=== PATIENT | male | born 1955 | race Caucasian/White ===

== ENCOUNTER 2017-10-26 07:21 | Inpatient (IN) | payer BC ==
[2017-10-26] MEDS: SOD CHLORIDE 0.45% 1,000 ML IV (06:00)
[2017-10-26] MEDS: FAMOTIDINE 20 MG TAB PO (07:00)
[2017-10-26] MEDS: DIAZEPAM 5 MG TAB PO (07:00)
[2017-10-26] MEDS: DIPHENHYDRAMINE 50 MG CAP PO (07:00)
[2017-10-26 08:06] LABS: ADD MAN DIFF? NO
[2017-10-26 08:09] LABS: BASOPHIL # 0.1 10^3/ul (0.0-0.1); BASOPHILS % 0.6 % (0.0-2.0); EOSINOPHILS # 0.3 10^3/ul (0.0-0.5); EOSINOPHILS % 3.2 % (0.0-7.0); HEMOGLOBIN 14.8 g/dl (14.0-18.0); LYMPHOCYTES # 1.7 10^3/ul (0.8-2.9); LYMPHOCYTES % 20.5 % (15.0-51.0); MEAN CORPUSCULAR HEMOGLOBIN 29.9 pg (29.0-33.0); MEAN CORPUSCULAR HGB CONC 33.6 g/dl (32.0-37.0); MEAN CORPUSCULAR VOLUME 88.9 fl (82.0-101.0); MEAN PLATELET VOLUME 11.5 fl (7.4-10.4); MONOCYTE # 0.6 10^3/ul (0.3-0.9); MONOCYTES % 7.9 % (0.0-11.0); NEUTROPHIL # 5.5 10^3/ul (1.6-7.5); NEUTROPHILS % 67.6 % (39.0-77.0); PLATELET COUNT 194 10^3/UL (140-415); RED BLOOD COUNT 4.95 10^6/ul (4.70-6.10); RED CELL DISTRIBUTION WIDTH 12.6 % (11.5-14.5)
[2017-10-26 08:09] LABS: WHITE BLOOD COUNT 8.1 10^3/ul (4.8-10.8)
[2017-10-26 08:29] LABS: INR 0.85; PROTIME 11.7 Sec (11.9-14.9); PT RATIO 0.9
[2017-10-26 08:30] LABS: ANION GAP 12 (8-16); BLOOD UREA NITROGEN 12 mg/dl (7-20); CALCIUM 9.2 mg/dl (8.4-10.2); CARBON DIOXIDE 23 mmol/L (21-31); CHLORIDE 109 mmol/L (97-110); CHOL/HDL RATIO 5.7 RATIO; CHOLESTEROL 219 mg/dl (100-200); CREATININE 0.81 mg/dl (0.61-1.24); GLUCOSE 142 mg/dl (70-220); HDL CHOLESTEROL 38 mg/dl (30-78); LDL CHOLESTEROL,CALCULATED 148 mg/dl; PARTIAL THROMBOPLASTIN TIME 28.8 Sec (25.0-35.0); POTASSIUM 3.9 mmol/L (3.5-5.1); SODIUM 140 mmol/L (135-144); TRIGLYCERIDES 163 mg/dl (0-149)
[2017-10-26] MEDS ORDERED: HEPARIN 1000 UNITS/ML 10 ML INJ (09:03)
[2017-10-26] MEDS ORDERED: IODIXANOL LOCM 100 ML BTL (09:03)
[2017-10-26] MEDS ORDERED: FENTAnyl 50 MCG/ML VIAL (09:03)
[2017-10-26] MEDS ORDERED: LIDOCAINE 1% (MDV) 20 ML INJ (09:03)
[2017-10-26] MEDS ORDERED: MIDAZOLAM 1 MG/ML 2 ML INJ (09:04)
[2017-10-26] MEDS ORDERED: NITROGLYCERIN (IC) 100 MCG/ML INJ (09:04)
[2017-10-26] MEDS ORDERED: SOD CHLORIDE 0.9% 500 ML (10:00)
[2017-10-26] MEDS ORDERED: BIVALIRUDIN 250MG /NS 50 ML 100 ML IVPB (10:01)
[2017-10-26] MEDS ORDERED: CLOPIDOGREL 300 MG TAB (10:34)
[2017-10-26] MEDS ORDERED: ASPIRIN 325 MG TAB (10:34)
[2017-10-26] MEDS ORDERED: ACETAMINOPHEN 325 MG TAB PO (11:00)
[2017-10-26] MEDS ORDERED: morphine 2 MG INJ IV (11:00)
[2017-10-26] MEDS ORDERED: OXYCODONE/ACETAMINOPHEN (5/325) TAB PO (11:00)
[2017-10-26] MEDS: SOD CHLORIDE 0.9% 1,000 ML IV (11:24)
[2017-10-26] MEDS ORDERED: NITROGLYCERIN (SL) 0.4 MG TAB (12:14)
[2017-10-26] MEDS: NITROGLYCERIN (SL) 0.4 MG TAB SL (13:55)
[2017-10-26] MEDS ORDERED: GLUCOSE GEL 15 GRAM TUBE PO ×2 (17:00)
[2017-10-26] MEDS ORDERED: INSULIN ASPART [NOVOLOG] 3 ML PEN SC (17:00)
[2017-10-26] MEDS ORDERED: GLUCAGON 1 MG INJ IM (17:00)
[2017-10-26] MEDS ORDERED: GLUCOSE GEL 15 GRAM TUBE BUCCAL (17:00)
[2017-10-26] MEDS ORDERED: DEXTROSE 50% 50 ML SYRINGE IV ×2 (17:00)
[2017-10-26] MEDS: INSULIN ASPART [NOVOLOG] 3 ML PEN SC ×2 (17:35→20:43)
[2017-10-26] MEDS ORDERED: NITROGLYCERIN (SL) 0.4 MG TAB SL (19:30)
[2017-10-26] MEDS: ATORVASTATIN 40 MG TAB PO (20:48)
[2017-10-26] MEDS: ONDANSETRON 4 MG INJ IV (21:57)
[2017-10-26] MEDS ORDERED: hydrALAzine 20 MG INJ IV (22:30)
[2017-10-27] MEDS: ACCU-CHEK XX (02:00)
[2017-10-27] MEDS: AL HYDROX/MG HYDROX/SIMETH 30 ML CUP PO (03:47)
[2017-10-27 05:12] LABS: ADD MAN DIFF? NO
[2017-10-27 05:19] LABS: BASOPHILS % 0.3 % (0.0-2.0); EOSINOPHILS # 0.1 10^3/ul (0.0-0.5); EOSINOPHILS % 0.8 % (0.0-7.0); HEMATOCRIT 45.5 % (42.0-52.0); HEMOGLOBIN 15.3 g/dl (14.0-18.0); LYMPHOCYTES # 1.2 10^3/ul (0.8-2.9); MEAN CORPUSCULAR HEMOGLOBIN 29.8 pg (29.0-33.0); MEAN CORPUSCULAR HGB CONC 33.6 g/dl (32.0-37.0); MEAN CORPUSCULAR VOLUME 88.7 fl (82.0-101.0); MEAN PLATELET VOLUME 11.6 fl (7.4-10.4); MONOCYTE # 0.7 10^3/ul (0.3-0.9); MONOCYTES % 5.5 % (0.0-11.0); NEUTROPHIL # 9.9 10^3/ul (1.6-7.5); PLATELET COUNT 179 10^3/UL (140-415); RED BLOOD COUNT 5.13 10^6/ul (4.70-6.10); RED CELL DISTRIBUTION WIDTH 12.4 % (11.5-14.5)
[2017-10-27 05:19] LABS: WHITE BLOOD COUNT 11.9 10^3/ul (4.8-10.8)
[2017-10-27 05:53] LABS: ANION GAP 14 (8-16); BLOOD UREA NITROGEN 10 mg/dl (7-20); CALCIUM 9.3 mg/dl (8.4-10.2); CARBON DIOXIDE 24 mmol/L (21-31); CHLORIDE 107 mmol/L (97-110); CREATINE KINASE 115 IU/L (23-200); CREATININE 0.79 mg/dl (0.61-1.24); GLUCOSE 197 mg/dl (70-220); POTASSIUM 4.1 mmol/L (3.5-5.1); SODIUM 141 mmol/L (135-144)
[2017-10-27] MEDS: SOD CHLORIDE 0.45% 1,000 ML IV (06:00)
[2017-10-27 06:03] LABS: CK INDEX 6.8; CK-MB 7.78 ng/ml (0.0-2.4)
[2017-10-27] MEDS: INSULIN ASPART [NOVOLOG] 3 ML PEN SC ×2 (07:35→11:30)
[2017-10-27 07:40] LABS: HEMOGLOBIN A1C 6.4 % (0-5.9)
[2017-10-27] MEDS: LISINOPRIL 5 MG TAB PO (08:25)
[2017-10-27] MEDS: BENAZEPRIL 5 MG TAB PO (08:25)
[2017-10-27] MEDS: ISOSORBIDE MONONITRATE(SR)30 MG TAB PO (08:25)
[2017-10-27] MEDS: CLOPIDOGREL 75 MG TAB PO (08:25)
[2017-10-27] MEDS: ASPIRIN (EC) 81 MG TAB PO (08:26)
[2017-10-27] MEDS: SPIRONOLACTONE 25 MG TAB PO (08:26)
[2017-10-27 12:41] LABS: CREATINE KINASE 94 IU/L (23-200)
[2017-10-27 12:52] LABS: CK-MB 6.61 ng/ml (0.0-2.4)
[2017-10-27] MEDS: DIGOXIN 0.125 MG TAB PO (13:23)
== END 2017-10-27 14:15 | disposition home or self-care (01) | DRG 247 ==
LOC: SDS 07:21 → ICU 12:00 → SDS 11:02 → ICU 11:02
PROVIDERS: Internal Medicine
PROC: 027035Z Dilation of Coronary Artery, One Artery with Two Drug-eluting Intraluminal Devices, Percutaneous Approach (ICD-10-PCS; principal; 2017-10-26 08:48)
PROC: 4A023N7 Measurement of Cardiac Sampling and Pressure, Left Heart, Percutaneous Approach (ICD-10-PCS; 2017-10-26 08:48)
PROC: B211YZZ Fluoroscopy of Multiple Coronary Arteries using Other Contrast (ICD-10-PCS; 2017-10-26 08:48)
PROC: B213YZZ Fluoroscopy of Multiple Coronary Artery Bypass Grafts using Other Contrast (ICD-10-PCS; 2017-10-26 08:48)
PROC: B218YZZ Fluoroscopy of Left Internal Mammary Bypass Graft using Other Contrast (ICD-10-PCS; 2017-10-26 08:48)
DX: I25.119 Atherosclerotic heart disease of native coronary artery with unspecified angina pectoris (principal); I25.810 Atherosclerosis of coronary artery bypass graft(s) without angina pectoris; I42.9 Cardiomyopathy, unspecified; I10 Essential (primary) hypertension; E11.9 Type 2 diabetes mellitus without complications; I25.82 Chronic total occlusion of coronary artery; F17.200 Nicotine dependence, unspecified, uncomplicated; E78.5 Hyperlipidemia, unspecified; Z95.5 Presence of coronary angioplasty implant and graft; Z79.84 Long term (current) use of oral hypoglycemic drugs
CPT/HCPCS: 71045; 80048; 80061; 82550; 82553; 82962; 83036; 84484; 85025; 85610; 85730; 87081; 93005; 93459